=== PATIENT | female | born 1940 | race Caucasian/White ===

== ENCOUNTER 2018-06-14 08:26 | Inpatient (IN) | payer MEDICARE, BC ==
[~2018-06-14 08:26] MED LIST: EPHEDrine SULFATE 50 MG/5 ML SYG
[2018-06-14] MEDS: CEFAZOLIN 2 GM/50 ML (PMX) 50 ML IVPB (08:30)
[2018-06-14] MEDS: LACTATED RINGER'S 1,000 ML IV* (08:30)
[2018-06-14 09:33] LABS: ADD MAN DIFF? NO
[2018-06-14 09:36] LABS: BASOPHILS % 0.4 % (0.0-2.0); EOSINOPHILS # 0.1 10^3/ul (0.0-0.5); EOSINOPHILS % 1.6 % (0.0-7.0); HEMATOCRIT 40.3 % (37.0-47.0); LYMPHOCYTES # 1.5 10^3/ul (0.8-2.9); LYMPHOCYTES % 21.4 % (15.0-51.0); MEAN CORPUSCULAR HEMOGLOBIN 30.5 pg (29.0-33.0); MEAN CORPUSCULAR HGB CONC 32.3 g/dl (32.0-37.0); MEAN CORPUSCULAR VOLUME 94.6 fl (82.0-101.0); MEAN PLATELET VOLUME 10.9 fl (7.4-10.4); MONOCYTE # 0.5 10^3/ul (0.3-0.9); MONOCYTES % 6.4 % (0.0-11.0); NEUTROPHIL # 4.9 10^3/ul (1.6-7.5); NEUTROPHILS % 69.8 % (39.0-77.0); PLATELET COUNT 242 10^3/UL (140-415); RED BLOOD COUNT 4.26 10^6/ul (4.20-5.40); RED CELL DISTRIBUTION WIDTH 13.6 % (11.5-14.5)
[2018-06-14] MEDS ORDERED: BACITRACIN 50000 UNITS INJ (11:11)
[2018-06-14] MEDS ORDERED: CEFAZOLIN 1 GM INJ (11:14)
[2018-06-14] MEDS ORDERED: LIDOCAINE 2% (SDV) 5 ML INJ (11:48)
[2018-06-14] MEDS ORDERED: PROPOFOL 20 ML (11:48)
[2018-06-14] MEDS ORDERED: ROCURONIUM 50 MG INJ ×2 (11:48→12:36)
[2018-06-14] MEDS ORDERED: SUCCINYLCHOLINE CHLORIDE 100 MG/5 ML SYG IV (11:48)
[2018-06-14] MEDS ORDERED: HEPARIN 1000 UNITS/ML 10 ML INJ (12:03)
[2018-06-14] MEDS ORDERED: hydrALAzine 20 MG INJ (12:36)
[2018-06-14] MEDS: CEFAZOLIN 1 GM INJ (13:07)
[2018-06-14] MEDS: THROMBIN 5000 UNIT VIAL (13:11)
[2018-06-14] MEDS: GELATIN SIZE 100 SPONGE (13:12)
[2018-06-14] MEDS ORDERED: ONDANSETRON 4 MG INJ (13:17)
[2018-06-14] MEDS ORDERED: DEXAMETHASONE 4 MG/ML 1 ML INJ (13:17)
[2018-06-14] MEDS ORDERED: FAMOTIDINE 20 MG INJ (13:17)
[2018-06-14] MEDS: BUPIVACAINE 0.25%/EPI (SDV) 10 ML INJ (14:43)
[2018-06-14] MEDS: DEXTROSE 5%-0.45% NACL 1,000 ML IV ×2 (16:37→20:04)
[2018-06-14] MEDS ORDERED: GLYCOPYRROLATE 0.4 MG INJ (16:41)
[2018-06-14] MEDS ORDERED: PHENYLephrine (100 MCG/ML) 5ML SYG ×2 (16:41)
[2018-06-14] MEDS ORDERED: NEOSTIGMINE 3 MG/3 ML SYRINGE (16:41)
[2018-06-14] MEDS ORDERED: MEPERIDINE 25 MG INJ (16:55)
[2018-06-14] MEDS ORDERED: HYDROCODONE/APAP (5/325) TAB PO (17:00)
[2018-06-14] MEDS ORDERED: NALOXONE (0.4 MG/ML) INJ IV (17:00)
[2018-06-14] MEDS ORDERED: AL HYDROX/MG HYDROX/SIMETH 30 ML CUP PO (17:00)
[2018-06-14] MEDS ORDERED: ACETAMINOPHEN 325 MG TAB PO (17:00)
[2018-06-14] MEDS ORDERED: PROCHLORPERAZINE 10 MG TAB PO (17:00)
[2018-06-14] MEDS ORDERED: ONDANSETRON 4 MG INJ IV (17:00)
[2018-06-14] MEDS ORDERED: NACL 0.9% 3 ML SYG IV (17:00)
[2018-06-14] MEDS: MEPERIDINE 25 MG INJ IV (17:10)
[2018-06-14] MEDS: HYDROmorphONE 0.2 MG/ML PCA IV (17:17)
[2018-06-14] MEDS: CEFAZOLIN 1 GM/50 ML (PMX) 50 ML IVPB (18:00)
[2018-06-14] MEDS: BENAZEPRIL 20 MG TAB PO (18:30)
[2018-06-14] MEDS ORDERED: VITAMIN A & D 5 GM OINT PACKET TOP (18:40)
[2018-06-14] MEDS: SOD CHLORIDE 0.9% 250 ML IV (20:01)
[2018-06-14] MEDS: traZODone 50 MG TAB PO (20:51)
[2018-06-14] MEDS: BUPROPION 75 MG TAB PO (20:51)
[2018-06-15] MEDS: CEFAZOLIN 1 GM/50 ML (PMX) 50 ML IVPB ×3 (00:10→12:43)
[2018-06-15 05:09] LABS: HEMATOCRIT 31.4 % (37.0-47.0)
[2018-06-15 05:37] LABS: ANION GAP 11 (5-13); BLOOD UREA NITROGEN 22 mg/dl (7-20); CARBON DIOXIDE 21 mmol/L (21-31); CHLORIDE 107 mmol/L (97-110); CREATININE 1.38 mg/dl (0.44-1.00); GLUCOSE 147 mg/dl (70-220); POTASSIUM 4.2 mmol/L (3.5-5.1); SODIUM 139 mmol/L (135-144)
[2018-06-15] MEDS: PANTOPRAZOLE (EC) 40 MG TAB PO (05:59)
[2018-06-15] MEDS: LEVOTHYROXINE 88 MCG TAB PO (06:02)
[2018-06-15 08:40] LABS: PHOSPHORUS 4.5 mg/dl (2.5-4.9)
[2018-06-15 08:40] LABS: MAGNESIUM 1.6 mg/dl (1.7-2.5)
[2018-06-15] MEDS: ALLOPURINOL 100 MG TAB PO (09:57)
[2018-06-15] MEDS: ESTRADIOL 1 MG TAB PO (09:57)
[2018-06-15] MEDS: BUPROPION 75 MG TAB PO ×2 (09:57→20:28)
[2018-06-15] MEDS: DOCUSATE SODIUM 100 MG CAP PO ×2 (09:57→20:28)
[2018-06-15] MEDS: PAROXETINE 10 MG TAB PO (09:59)
[2018-06-15] MEDS: DEXTROSE 5%-0.45% NACL 1,000 ML IV ×3 (10:00→20:02)
[2018-06-15] MEDS: HYDROmorphONE 0.2 MG/ML PCA IV (11:20)
[2018-06-15] MEDS: HYDROCODONE/APAP (5/325) TAB PO ×3 (13:33→23:23)
[2018-06-15 18:51] LABS: THYROID STIMULATING HORMONE 0.404 MIU/L (0.465-4.680)
[2018-06-15] MEDS: traZODone 50 MG TAB PO (20:28)
[2018-06-16] MEDS: DEXTROSE 5%-0.45% NACL 1,000 ML IV ×2 (01:17→05:53)
[2018-06-16 05:35] LABS: ADD MAN DIFF? NO
[2018-06-16] MEDS: PANTOPRAZOLE (EC) 40 MG TAB PO (05:52)
[2018-06-16] MEDS: LEVOTHYROXINE 88 MCG TAB PO (06:00)
[2018-06-16 06:02] LABS: ANION GAP 6 (5-13); BLOOD UREA NITROGEN 19 mg/dl (7-20); CALCIUM 8.2 mg/dl (8.4-10.2); CARBON DIOXIDE 23 mmol/L (21-31); CHLORIDE 107 mmol/L (97-110); GLUCOSE 109 mg/dl (70-220); MAGNESIUM 1.8 mg/dl (1.7-2.5); PHOSPHORUS 3.4 mg/dl (2.5-4.9); POTASSIUM 3.9 mmol/L (3.5-5.1); SODIUM 136 mmol/L (135-144)
[2018-06-16] MEDS: HYDROCODONE/APAP (5/325) TAB PO ×3 (06:33→16:16)
[2018-06-16 06:39] LABS: BASOPHILS % 0.2 % (0.0-2.0); EOSINOPHILS # 0.3 10^3/ul (0.0-0.5); EOSINOPHILS % 3.1 % (0.0-7.0); LYMPHOCYTES # 1.1 10^3/ul (0.8-2.9); LYMPHOCYTES % 11.1 % (15.0-51.0); MEAN CORPUSCULAR HEMOGLOBIN 31.4 pg (29.0-33.0); MEAN CORPUSCULAR HGB CONC 32.3 g/dl (32.0-37.0); MEAN CORPUSCULAR VOLUME 97.5 fl (82.0-101.0); MEAN PLATELET VOLUME 11.1 fl (7.4-10.4); MONOCYTES % 9.4 % (0.0-11.0); NEUTROPHIL # 7.7 10^3/ul (1.6-7.5); NEUTROPHILS % 75.7 % (39.0-77.0); RED BLOOD COUNT 3.18 10^6/ul (4.20-5.40); RED CELL DISTRIBUTION WIDTH 13.6 % (11.5-14.5)
[2018-06-16 06:39] LABS: WHITE BLOOD COUNT 10.2 10^3/ul (4.8-10.8)
[2018-06-16 06:42] LABS: PLATELET COUNT 172 10^3/UL (140-415); POSITIVE DIFF @See below
[2018-06-16] MEDS: ALLOPURINOL 100 MG TAB PO (09:40)
[2018-06-16] MEDS: DOCUSATE SODIUM 100 MG CAP PO (09:40)
[2018-06-16] MEDS: BUPROPION 75 MG TAB PO (09:40)
[2018-06-16] MEDS: PAROXETINE 10 MG TAB PO (09:40)
[2018-06-16] MEDS: ESTRADIOL 1 MG TAB PO (09:40)
[2018-06-16] MEDS ORDERED: VITAMIN A & D 5 GM OINT PACKET TOP (12:13)
[2018-06-21] MEDS ORDERED: MIDAZOLAM 1 MG/ML 2 ML INJ (20:48)
[2018-06-21] MEDS ORDERED: METOCLOPRAMIDE 10 MG INJ (20:48)
== END 2018-06-16 17:13 | DRG 455 ==
LOC: REC 08:26 → MS1 18:26
PROVIDERS: Orthopaedic Surgery
PROC: 0SG00A0 Fusion of Lumbar Vertebral Joint with Interbody Fusion Device, Anterior Approach, Anterior Column, Open Approach (ICD-10-PCS; principal; 2018-06-14 10:30)
PROC: 0SG00K1 Fusion of Lumbar Vertebral Joint with Nonautologous Tissue Substitute, Posterior Approach, Posterior Column, Open Approach (ICD-10-PCS; 2018-06-14 10:30)
PROC: 0SB20ZZ Excision of Lumbar Vertebral Disc, Open Approach (ICD-10-PCS; 2018-06-14 10:30)
PROC: 4A11X4G Monitoring of Peripheral Nervous Electrical Activity, Intraoperative, External Approach (ICD-10-PCS; 2018-06-14 10:30)
DX: M43.16 Spondylolisthesis, lumbar region (principal); M48.061 Spinal stenosis, lumbar region without neurogenic claudication; M53.2X6 Spinal instabilities, lumbar region; M54.16 Radiculopathy, lumbar region; M85.80 Other specified disorders of bone density and structure, unspecified site; M10.9 Gout, unspecified; E03.9 Hypothyroidism, unspecified; E66.9 Obesity, unspecified; F32.9 Major depressive disorder, single episode, unspecified; I12.9 Hypertensive chronic kidney disease with stage 1 through stage 4 chronic kidney disease, or unspecified chronic kidney disease; K21.9 Gastro-esophageal reflux disease without esophagitis; N18.9 Chronic kidney disease, unspecified; Z68.33 Body mass index [BMI] 33.0-33.9, adult
CPT/HCPCS: 72114; 80048; 83735; 84100; 84443; 85014; 85018; 85025; 86850; 86900; 86901; 86920; 87086; 97110; 97116; 97162; 97530

== ENCOUNTER 2018-06-16 17:46 | Inpatient (IN) | payer MEDICARE, BC ==
[2018-06-16] MEDS ORDERED: BISACODYL 10 MG SUPP PR (18:30)
[2018-06-16] MEDS ORDERED: PENDING SANTYL ORDER FOR WOUND CARE XX (18:30)
[2018-06-16] MEDS ORDERED: ACETAMINOPHEN 325 MG TAB PO ×2 (18:30→21:30)
[2018-06-16] MEDS ORDERED: MAGNESIUM HYDROXIDE 30ML CUP PO (18:30)
[2018-06-16] MEDS ORDERED: AL HYDROX/MG HYDROX/SIMETH 30 ML CUP PO (21:30)
[2018-06-16] MEDS ORDERED: ONDANSETRON 4 MG INJ IV (21:30)
[2018-06-16] MEDS ORDERED: ACETAMINOPHEN/CODEINE #3 TAB PO (21:30)
[2018-06-16] MEDS ORDERED: DOCUSATE SODIUM 100 MG CAP PO (21:30)
[2018-06-16] MEDS ORDERED: NALOXONE (0.4 MG/ML) INJ IV (21:30)
[2018-06-16] MEDS: DEXTROSE 5%-0.45% NACL 1,000 ML IV (22:00)
[2018-06-16] MEDS ORDERED: NACL 0.9% 3 ML SYG IV (22:00)
[2018-06-16] MEDS: DOCUSATE SODIUM 100 MG CAP PO (23:04)
[2018-06-16] MEDS: HYDROCODONE/APAP (5/325) TAB PO (23:04)
[2018-06-16] MEDS: traZODone 50 MG TAB PO (23:04)
[2018-06-16] MEDS: SENNA TAB PO (23:04)
[2018-06-16] MEDS: BUPROPION 75 MG TAB PO (23:25)
[2018-06-17 00:01] LABS: ADD UMIC YES; UR ASCORBIC ACID NEGATIVE (NEGATIVE); UR BACTERIA FEW /HPF (NONE SEEN); UR BILIRUBIN (Dip) NEGATIVE (NEGATIVE); UR BLOOD (Dip) 2+ mg/dL (NEGATIVE); UR CLARITY SLIGHTLY CLOUDY (CLEAR); UR COLOR YELLOW (YELLOW); UR GLUCOSE (Dip) NEGATIVE (NEGATIVE); UR KETONES (Dip) NEGATIVE (NEGATIVE); UR LEUKOCYTE ESTERASE (Dip) NEGATIVE Leu/ul (NEGATIVE); UR NITRITE (Dip) NEGATIVE (NEGATIVE); UR RBC 4 /HPF (0-5); UR SPECIFIC GRAVITY (Dip) 1.012 (1.003-1.030); UR SQUAMOUS EPITHELIAL CELL FEW /HPF (FEW); UR TOTAL PROTEIN (Dip) NEGATIVE (NEGATIVE); UR UROBILINOGEN (Dip) NEGATIVE (NEGATIVE); UR WBC 3 /HPF (0-5)
[2018-06-17] MEDS: DEXTROSE 5%-0.45% NACL 1,000 ML IV (05:30)
[2018-06-17] MEDS: PANTOPRAZOLE (EC) 40 MG TAB PO (06:49)
[2018-06-17] MEDS: LEVOTHYROXINE 88 MCG TAB PO (06:49)
[2018-06-17 07:04] LABS: HEMATOCRIT 31.2 % (37.0-47.0); HEMOGLOBIN 9.7 g/dl (12.0-16.0); MEAN CORPUSCULAR HEMOGLOBIN 30.6 pg (29.0-33.0); MEAN CORPUSCULAR HGB CONC 31.1 g/dl (32.0-37.0); MEAN CORPUSCULAR VOLUME 98.4 fl (82.0-101.0); MEAN PLATELET VOLUME 10.9 fl (7.4-10.4); PLATELET COUNT 186 10^3/UL (140-415); RED BLOOD COUNT 3.17 10^6/ul (4.20-5.40); RED CELL DISTRIBUTION WIDTH 13.6 % (11.5-14.5)
[2018-06-17 07:04] LABS: WHITE BLOOD COUNT 10.6 10^3/ul (4.8-10.8)
[2018-06-17 07:13] LABS: POSITIVE DIFF @See below
[2018-06-17 07:14] LABS: ADD MAN DIFF? YES
[2018-06-17 07:26] LABS: ALANINE AMINOTRANSFERASE 19 IU/L (13-69); ALBUMIN 2.9 g/dl (3.3-4.9); ALBUMIN/GLOBULIN RATIO 1.07; ALKALINE PHOSPHATASE 98 IU/L (42-121); ANION GAP 7 (5-13); ASPARTATE AMINO TRANSFERASE 34 IU/L (15-46); BILIRUBIN,INDIRECT 0.6 mg/dl (0-1.1); BILIRUBIN,TOTAL 0.6 mg/dl (0.2-1.3); BLOOD UREA NITROGEN 16 mg/dl (7-20); CALCIUM 8.5 mg/dl (8.4-10.2); CARBON DIOXIDE 25 mmol/L (21-31); CHLORIDE 107 mmol/L (97-110); CREATININE 1.09 mg/dl (0.44-1.00); GLUCOSE 109 mg/dl (70-220); POTASSIUM 3.8 mmol/L (3.5-5.1); SODIUM 139 mmol/L (135-144); TOTAL PROTEIN 5.6 g/dl (6.1-8.1)
[2018-06-17 07:59] LABS: ANISOCYTOSIS 1+ (0-0); BAND NEUTROPHILS #M 0.1 10^3/ul (0.0-0.6); BAND NEUTROPHILS % (M) 1 % (0-4); EOSINOPHILS % (M) 4 % (0-7); LYMPHOCYTES #M 0.8 10^3/ul (0.8-2.9); LYMPHOCYTES % (M) 8 % (15-51); MONOCYTE #M 0.8 10^3/ul (0.3-0.9); MONOCYTES % (M) 8 % (0-11); PLATELET ESTIMATE NORMAL; POLYCHROMASIA 3+ (0-0); SEG NEUT #M 8.4 10^3/ul (1.6-7.5); SEGMENTED NEUTROPHILS (M) % 79 % (39-77); SMUDGE%M 4 % (0-0)
[2018-06-17] MEDS: HYDROCODONE/APAP (5/325) TAB PO ×4 (08:04→21:09)
[2018-06-17 08:29] LABS: IRON 18 ug/dl (35-150)
[2018-06-17 08:38] LABS: % IRON SATURATION 6 % SAT (22-52); TOTAL IRON BINDING CAPACITY 288 ug/dl (241-421)
[2018-06-17] MEDS: BENAZEPRIL 20 MG TAB PO (09:00)
[2018-06-17] MEDS: PAROXETINE 10 MG TAB PO (09:28)
[2018-06-17] MEDS: DOCUSATE SODIUM 100 MG CAP PO ×2 (09:28→21:00)
[2018-06-17] MEDS: ESTRADIOL 1 MG TAB PO (09:29)
[2018-06-17] MEDS: LACTULOSE 30ML CUP PO (09:29)
[2018-06-17] MEDS: BUPROPION 75 MG TAB PO ×2 (09:30→21:08)
[2018-06-17] MEDS: ALLOPURINOL 100 MG TAB PO (09:30)
[2018-06-17] MEDS: INFLUENZA VIRUS VACCINE 0.5 ML (DISPENSING) IM* (09:31)
[2018-06-17] MEDS: METHOCARBAMOL 500 MG TAB PO ×2 (12:05→17:40)
[2018-06-17] MEDS: SENNA TAB PO (21:00)
[2018-06-17] MEDS: traZODone 50 MG TAB PO (21:09)
[2018-06-18] MEDS: HYDROCODONE/APAP (5/325) TAB PO ×6 (01:32→23:15)
[2018-06-18] MEDS: PANTOPRAZOLE (EC) 40 MG TAB PO (06:36)
[2018-06-18] MEDS: LEVOTHYROXINE 88 MCG TAB PO (06:36)
[2018-06-18] MEDS ORDERED: DEXAMETHASONE 10 MG/ML 1 ML INJ IV (09:30)
[2018-06-18] MEDS: DOCUSATE SODIUM 100 MG CAP PO ×2 (11:00→20:54)
[2018-06-18] MEDS: BUPROPION 75 MG TAB PO ×2 (11:01→20:46)
[2018-06-18] MEDS: ALLOPURINOL 100 MG TAB PO (11:01)
[2018-06-18] MEDS: PAROXETINE 10 MG TAB PO (11:03)
[2018-06-18] MEDS: ESTRADIOL 1 MG TAB PO (11:03)
[2018-06-18] MEDS: PROCHLORPERAZINE 10 MG TAB PO (11:04)
[2018-06-18] MEDS: FERROUS FUMARATE (SR) TAB PO ×2 (11:04→20:46)
[2018-06-18] MEDS: BENAZEPRIL 20 MG TAB PO (11:05)
[2018-06-18] MEDS: DEXAMETHASONE 10 MG/ML 1 ML INJ IM (14:33)
[2018-06-18] MEDS: traZODone 50 MG TAB PO (20:46)
[2018-06-18] MEDS: SENNA TAB PO (20:54)
[2018-06-18] MEDS: METHOCARBAMOL 500 MG TAB PO (23:15)
[2018-06-19] MEDS: HYDROCODONE/APAP (5/325) TAB PO ×6 (00:41→22:15)
[2018-06-19] MEDS: PANTOPRAZOLE (EC) 40 MG TAB PO (06:39)
[2018-06-19] MEDS: LEVOTHYROXINE 88 MCG TAB PO (06:39)
[2018-06-19 07:17] LABS: ADD MAN DIFF? NO
[2018-06-19 07:22] LABS: BASOPHILS % 0.1 % (0.0-2.0); HEMATOCRIT 31.6 % (37.0-47.0); HEMOGLOBIN 10.2 g/dl (12.0-16.0); LYMPHOCYTES # 0.8 10^3/ul (0.8-2.9); LYMPHOCYTES % 10.6 % (15.0-51.0); MEAN CORPUSCULAR HGB CONC 32.3 g/dl (32.0-37.0); MEAN PLATELET VOLUME 10.9 fl (7.4-10.4); MONOCYTE # 0.4 10^3/ul (0.3-0.9); MONOCYTES % 5.5 % (0.0-11.0); NEUTROPHIL # 6.2 10^3/ul (1.6-7.5); NEUTROPHILS % 83.1 % (39.0-77.0); PLATELET COUNT 258 10^3/UL (140-415); RED BLOOD COUNT 3.29 10^6/ul (4.20-5.40); RED CELL DISTRIBUTION WIDTH 13.3 % (11.5-14.5)
[2018-06-19 07:22] LABS: WHITE BLOOD COUNT 7.4 10^3/ul (4.8-10.8)
[2018-06-19 07:59] LABS: ALANINE AMINOTRANSFERASE 23 IU/L (13-69); ALBUMIN 3.1 g/dl (3.3-4.9); ALKALINE PHOSPHATASE 142 IU/L (42-121); ANION GAP 10 (5-13); ASPARTATE AMINO TRANSFERASE 30 IU/L (15-46); BILIRUBIN,INDIRECT 0.5 mg/dl (0-1.1); BILIRUBIN,TOTAL 0.5 mg/dl (0.2-1.3); BLOOD UREA NITROGEN 16 mg/dl (7-20); CALCIUM 8.6 mg/dl (8.4-10.2); CARBON DIOXIDE 26 mmol/L (21-31); CHLORIDE 107 mmol/L (97-110); GLUCOSE 135 mg/dl (70-220); POTASSIUM 3.9 mmol/L (3.5-5.1); SODIUM 143 mmol/L (135-144); TOTAL PROTEIN 6.2 g/dl (6.1-8.1)
[2018-06-19] MEDS: DOCUSATE SODIUM 100 MG CAP PO ×2 (08:39→22:02)
[2018-06-19] MEDS: PAROXETINE 10 MG TAB PO (08:39)
[2018-06-19] MEDS: ESTRADIOL 1 MG TAB PO (08:39)
[2018-06-19] MEDS: FERROUS FUMARATE (SR) TAB PO ×2 (08:40→22:01)
[2018-06-19] MEDS: BENAZEPRIL 20 MG TAB PO (08:40)
[2018-06-19] MEDS: BUPROPION 75 MG TAB PO ×2 (08:40→22:01)
[2018-06-19] MEDS: ALLOPURINOL 100 MG TAB PO (08:40)
[2018-06-19] MEDS: METHOCARBAMOL 500 MG TAB PO (16:05)
[2018-06-19] MEDS ORDERED: HYDROmorphONE 0.5 MG/0.5 ML SYG IV (17:30)
[2018-06-19] MEDS: DEXAMETHASONE 10 MG/ML 1 ML INJ IM (17:46)
[2018-06-19] MEDS ORDERED: HYDROmorphONE 0.5 MG/0.5 ML SYG IM (21:30)
[2018-06-19] MEDS: SENNA TAB PO (22:01)
[2018-06-19] MEDS: traZODone 50 MG TAB PO (22:01)
[2018-06-20] MEDS: HYDROCODONE/APAP (5/325) TAB PO ×5 (02:17→17:39)
[2018-06-20] MEDS: LEVOTHYROXINE 88 MCG TAB PO (06:23)
[2018-06-20] MEDS: PANTOPRAZOLE (EC) 40 MG TAB PO (06:23)
[2018-06-20] MEDS: GABAPENTIN 300 MG CAP PO ×2 (09:14→20:13)
[2018-06-20] MEDS: METHOCARBAMOL 500 MG TAB PO (09:14)
[2018-06-20] MEDS: ESTRADIOL 1 MG TAB PO (09:14)
[2018-06-20] MEDS: ALLOPURINOL 100 MG TAB PO (09:14)
[2018-06-20] MEDS: BENAZEPRIL 20 MG TAB PO (09:15)
[2018-06-20] MEDS: FERROUS FUMARATE (SR) TAB PO ×2 (09:15→20:12)
[2018-06-20] MEDS: DOCUSATE SODIUM 100 MG CAP PO ×2 (09:15→20:13)
[2018-06-20] MEDS: PAROXETINE 10 MG TAB PO (09:15)
[2018-06-20] MEDS: BUPROPION 75 MG TAB PO ×2 (09:16→20:13)
[2018-06-20] MEDS: DEXAMETHASONE 10 MG/ML 1 ML INJ IM (09:36)
[2018-06-20] MEDS: GABAPENTIN 100 MG CAP PO (12:30)
[2018-06-20] MEDS: HYDROmorphONE 0.5 MG/0.5 ML SYG IM (15:48)
[2018-06-20] MEDS: SENNA TAB PO (20:13)
[2018-06-20] MEDS: traZODone 50 MG TAB PO (20:13)
[2018-06-21] MEDS: HYDROmorphONE 0.5 MG/0.5 ML SYG IM (00:32)
[2018-06-21] MEDS: HYDROCODONE/APAP (5/325) TAB PO ×3 (02:47→10:43)
[2018-06-21] MEDS: PANTOPRAZOLE (EC) 40 MG TAB PO (06:39)
[2018-06-21] MEDS: LEVOTHYROXINE 88 MCG TAB PO (06:39)
[2018-06-21] MEDS ORDERED: DESFLURANE 15 MIN (07:00)
[2018-06-21] MEDS ORDERED: METOCLOPRAMIDE 10 MG INJ (07:00)
[2018-06-21] MEDS: HYDROmorphONE 0.5 MG/0.5 ML SYG IV (08:06)
[2018-06-21] MEDS: DOCUSATE SODIUM 100 MG CAP PO (09:05)
[2018-06-21] MEDS: BENAZEPRIL 20 MG TAB PO (09:05)
[2018-06-21] MEDS: FERROUS FUMARATE (SR) TAB PO (09:05)
[2018-06-21] MEDS: ESTRADIOL 1 MG TAB PO (09:05)
[2018-06-21] MEDS: GABAPENTIN 300 MG CAP PO (09:06)
[2018-06-21] MEDS: BUPROPION 75 MG TAB PO (09:06)
[2018-06-21] MEDS: ALLOPURINOL 100 MG TAB PO (09:06)
[2018-06-21] MEDS: PAROXETINE 10 MG TAB PO (09:06)
[2018-06-21 10:54] LABS: ADD MAN DIFF? NO
[2018-06-21 10:56] LABS: WHITE BLOOD COUNT 9.8 10^3/ul (4.8-10.8)
[2018-06-21 10:56] LABS: BASOPHILS % 0.1 % (0.0-2.0); EOSINOPHILS # 0.1 10^3/ul (0.0-0.5); EOSINOPHILS % 1.1 % (0.0-7.0); HEMATOCRIT 31.3 % (37.0-47.0); HEMOGLOBIN 10.1 g/dl (12.0-16.0); LYMPHOCYTES # 2.8 10^3/ul (0.8-2.9); LYMPHOCYTES % 28.6 % (15.0-51.0); MEAN CORPUSCULAR HEMOGLOBIN 30.4 pg (29.0-33.0); MEAN CORPUSCULAR HGB CONC 32.3 g/dl (32.0-37.0); MEAN CORPUSCULAR VOLUME 94.3 fl (82.0-101.0); MEAN PLATELET VOLUME 10.1 fl (7.4-10.4); MONOCYTE # 1.1 10^3/ul (0.3-0.9); MONOCYTES % 10.7 % (0.0-11.0); NEUTROPHIL # 5.7 10^3/ul (1.6-7.5); NEUTROPHILS % 57.9 % (39.0-77.0); PLATELET COUNT 302 10^3/UL (140-415); RED BLOOD COUNT 3.32 10^6/ul (4.20-5.40); RED CELL DISTRIBUTION WIDTH 13.6 % (11.5-14.5)
[2018-06-21 11:14] LABS: ANION GAP 7 (5-13); BLOOD UREA NITROGEN 27 mg/dl (7-20); CALCIUM 8.4 mg/dl (8.4-10.2); CARBON DIOXIDE 27 mmol/L (21-31); CHLORIDE 104 mmol/L (97-110); GLUCOSE 87 mg/dl (70-220); POTASSIUM 4.3 mmol/L (3.5-5.1); SODIUM 138 mmol/L (135-144)
[2018-06-21] MEDS: GABAPENTIN 100 MG CAP PO (13:00)
[2018-06-21] MEDS: HYDROmorphONE 0.2 MG/ML PCA IV (15:56)
[2018-06-21] MEDS ORDERED: HYDROmorphONE 0.5 MG/0.5 ML SYG IV (16:00)
[2018-06-21] MEDS ORDERED: HYDROCODONE/APAP (5/325) TAB PO (16:00)
[2018-06-21] MEDS: 1/2 NS + KCL 20 MEQ 1,000 ML IV (17:21)
[2018-06-21] MEDS ORDERED: GELATIN SIZE 100 SPONGE (20:05)
[2018-06-21] MEDS ORDERED: POLYMYXIN/BACITRACIN 1L IRRIG (20:06)
[2018-06-21] MEDS ORDERED: THROMBIN 5000 UNIT VIAL (20:06)
[2018-06-21] MEDS ORDERED: ROCURONIUM 50 MG INJ (21:10)
[2018-06-21] MEDS ORDERED: ONDANSETRON 4 MG INJ (21:10)
[2018-06-21] MEDS ORDERED: SUCCINYLCHOLINE CHLORIDE 100 MG/5 ML SYG IV (21:10)
[2018-06-21] MEDS ORDERED: PROPOFOL 20 ML (21:10)
[2018-06-21] MEDS ORDERED: CEFAZOLIN 1 GM INJ (21:10)
[2018-06-21] MEDS ORDERED: MEPERIDINE 25 MG INJ IV (21:30)
[2018-06-21] MEDS ORDERED: ONDANSETRON 4 MG INJ IV (21:30)
[2018-06-21] MEDS ORDERED: DIPHENHYDRAMINE 50 MG INJ IV (21:30)
[2018-06-21] MEDS ORDERED: HYDROmorphONE 1 MG/5 ML IV SYRINGE IV ×3 (21:30)
[2018-06-21] MEDS: BUPIVACAINE 0.25%/EPI (SDV) 30 ML INJ INJ (22:08)
[2018-06-21] MEDS: POLYMYXIN/BACITRACIN 1L IRRIG (22:08)
[2018-06-21] MEDS: THROMBIN 5000 UNIT VIAL ×2 (22:09→23:29)
[2018-06-21] MEDS: GELATIN SIZE 100 SPONGE (23:29)
[2018-06-22] MEDS ORDERED: SOD CHLORIDE 0.45% 1,000 ML IV (01:28)
[2018-06-22] MEDS ORDERED: NACL 0.9% 3 ML SYG IV (01:30)
[2018-06-22] MEDS ORDERED: NALOXONE (0.4 MG/ML) INJ IV (01:30)
[2018-06-22] MEDS ORDERED: HYDROCODONE/APAP (5/325) TAB PO ×2 (01:30)
[2018-06-22] MEDS ORDERED: ONDANSETRON 4 MG INJ IV (01:30)
[2018-06-22] MEDS ORDERED: PROCHLORPERAZINE 10 MG TAB PO (01:30)
[2018-06-22] MEDS ORDERED: HYDROmorphONE 0.2 MG/ML PCA IV (01:30)
[2018-06-22] MEDS ORDERED: AL HYDROX/MG HYDROX/SIMETH 30 ML CUP PO (01:30)
[2018-06-22] MEDS ORDERED: ACETAMINOPHEN 325 MG TAB PO (01:30)
[2018-06-22] MEDS ORDERED: CEFAZOLIN 1 GM/50 ML (PMX) 50 ML IVPB (06:00)
== END 2018-06-21 19:45 | disposition home or self-care (01) | DRG 946 ==
LOC: VRC 17:46
PROC: F07Z5ZZ Bed Mobility Treatment (ICD-10-PCS; principal; 2018-06-21 20:47)
PROC: F08Z2ZZ Grooming/Personal Hygiene Treatment (ICD-10-PCS; 2018-06-21 20:47)
DX: G89.18 Other acute postprocedural pain (principal); M54.5 Low back pain; I10 Essential (primary) hypertension; M48.07 Spinal stenosis, lumbosacral region; M54.17 Radiculopathy, lumbosacral region; E03.9 Hypothyroidism, unspecified; K21.9 Gastro-esophageal reflux disease without esophagitis; Z74.09 Other reduced mobility; F39 Unspecified mood [affective] disorder; D50.9 Iron deficiency anemia, unspecified; M10.9 Gout, unspecified; D64.9 Anemia, unspecified
CPT/HCPCS: 72100; 72131; 72158; 80048; 80053; 81001; 82728; 83540; 85025; 86850; 86900; 86901; 87081; 87086; 90686; 97110; 97116; 97162; 97167; 97530; 97535

== ENCOUNTER 2018-06-22 03:25 | Inpatient (IN) | payer MEDICARE, BC ==
[2018-06-21] MEDS: CEFAZOLIN 1 GM/50 ML (PMX) 50 ML IVPB (21:12)
[2018-06-22] MEDS: HYDROmorphONE 0.2 MG/ML PCA IV (03:01)
[2018-06-22] MEDS: HYDROmorphONE 1 MG/5 ML IV SYRINGE IV (03:05)
[~2018-06-22 03:25] MED LIST changes: +ACETAMINOPHEN 325 MG TAB PO; +DIPHENHYDRAMINE 50 MG INJ IV; -EPHEDrine SULFATE 50 MG/5 ML SYG; +HYDROmorphONE 1 MG/5 ML IV SYRINGE IV; +MEPERIDINE 25 MG INJ IV; +NACL 0.9% 3 ML SYG IV; +NALOXONE (0.4 MG/ML) INJ IV; +ONDANSETRON 4 MG INJ IV; +PROCHLORPERAZINE 10 MG TAB PO
[2018-06-22] MEDS: CEFAZOLIN 1 GM/50 ML (PMX) 50 ML IVPB ×3 (05:38→17:38)
[2018-06-22] MEDS: PAROXETINE 10 MG TAB PO (09:00)
[2018-06-22] MEDS: BENAZEPRIL 20 MG TAB PO (09:00)
[2018-06-22 09:01] LABS: ADD MAN DIFF? NO
[2018-06-22 09:08] LABS: WHITE BLOOD COUNT 11.8 10^3/ul (4.8-10.8)
[2018-06-22 09:08] LABS: BASOPHILS % 0.3 % (0.0-2.0); EOSINOPHILS # 0.3 10^3/ul (0.0-0.5); EOSINOPHILS % 2.9 % (0.0-7.0); HEMATOCRIT 31.2 % (37.0-47.0); HEMOGLOBIN 9.9 g/dl (12.0-16.0); MEAN CORPUSCULAR HEMOGLOBIN 30.7 pg (29.0-33.0); MEAN CORPUSCULAR HGB CONC 31.7 g/dl (32.0-37.0); MEAN CORPUSCULAR VOLUME 96.6 fl (82.0-101.0); MEAN PLATELET VOLUME 9.8 fl (7.4-10.4); MONOCYTES % 8.8 % (0.0-11.0); NEUTROPHIL # 8.1 10^3/ul (1.6-7.5); NEUTROPHILS % 68.6 % (39.0-77.0); PLATELET COUNT 312 10^3/UL (140-415); RED BLOOD COUNT 3.23 10^6/ul (4.20-5.40); RED CELL DISTRIBUTION WIDTH 13.9 % (11.5-14.5)
[2018-06-22 09:24] LABS: ANION GAP 7 (5-13); BLOOD UREA NITROGEN 27 mg/dl (7-20); CALCIUM 7.8 mg/dl (8.4-10.2); CARBON DIOXIDE 25 mmol/L (21-31); CHLORIDE 103 mmol/L (97-110); CREATININE 1.12 mg/dl (0.44-1.00); GLUCOSE 101 mg/dl (70-220); MAGNESIUM 1.6 mg/dl (1.7-2.5); PHOSPHORUS 5.4 mg/dl (2.5-4.9); POTASSIUM 4.2 mmol/L (3.5-5.1); SODIUM 135 mmol/L (135-144)
[2018-06-22] MEDS: SOD CHLORIDE 0.9% 1,000 ML IV ×2 (09:30→15:22)
[2018-06-22] MEDS: BUPROPION 75 MG TAB PO (11:10)
[2018-06-22] MEDS: ESTRADIOL 1 MG TAB PO (11:10)
[2018-06-22] MEDS: ALLOPURINOL 100 MG TAB PO (11:10)
[2018-06-22] MEDS ORDERED: HYDROmorphONE 0.5 MG/0.5 ML SYG IV (13:00)
[2018-06-22] MEDS: HYDROCODONE/APAP (5/325) TAB PO ×2 (13:06→17:38)
[2018-06-23] MEDS: BUPROPION 75 MG TAB PO ×3 (00:29→22:16)
[2018-06-23] MEDS: CEFAZOLIN 1 GM/50 ML (PMX) 50 ML IVPB (00:29)
[2018-06-23] MEDS: traZODone 50 MG TAB PO ×2 (00:29→21:04)
[2018-06-23] MEDS: HYDROCODONE/APAP (5/325) TAB PO ×5 (00:29→18:59)
[2018-06-23] MEDS: SOD CHLORIDE 0.9% 1,000 ML IV ×2 (04:46→18:32)
[2018-06-23] MEDS: LEVOTHYROXINE 88 MCG TAB PO (07:15)
[2018-06-23] MEDS: DOCUSATE SODIUM 100 MG CAP PO ×2 (08:50→21:04)
[2018-06-23] MEDS: MAGNESIUM HYDROXIDE 30ML CUP PO ×2 (08:50→21:07)
[2018-06-23] MEDS: BENAZEPRIL 20 MG TAB PO (08:51)
[2018-06-23] MEDS: ESTRADIOL 1 MG TAB PO (08:51)
[2018-06-23] MEDS: ALLOPURINOL 100 MG TAB PO (08:51)
[2018-06-23] MEDS: PAROXETINE 10 MG TAB PO (08:57)
[2018-06-23 09:42] LABS: HEMATOCRIT 30.8 % (37.0-47.0); HEMOGLOBIN 10.1 g/dl (12.0-16.0)
[2018-06-23 09:57] LABS: ADD UMIC YES; UR ASCORBIC ACID NEGATIVE (NEGATIVE); UR BILIRUBIN (Dip) NEGATIVE (NEGATIVE); UR BLOOD (Dip) 1+ mg/dL (NEGATIVE); UR CLARITY CLEAR (CLEAR); UR COLOR YELLOW (YELLOW); UR GLUCOSE (Dip) NEGATIVE (NEGATIVE); UR KETONES (Dip) NEGATIVE (NEGATIVE); UR LEUKOCYTE ESTERASE (Dip) NEGATIVE Leu/ul (NEGATIVE); UR NITRITE (Dip) NEGATIVE (NEGATIVE); UR RBC 2 /HPF (0-5); UR SPECIFIC GRAVITY (Dip) 1.011 (1.003-1.030); UR TOTAL PROTEIN (Dip) NEGATIVE (NEGATIVE); UR UROBILINOGEN (Dip) 1+ mg/dL (NEGATIVE); UR WBC 1 /HPF (0-5)
[2018-06-23 10:18] LABS: BLOOD UREA NITROGEN 19 mg/dl (7-20); CALCIUM 7.8 mg/dl (8.4-10.2); CHLORIDE 108 mmol/L (97-110); GLUCOSE 92 mg/dl (70-220); POTASSIUM 3.9 mmol/L (3.5-5.1); SODIUM 139 mmol/L (135-144)
[2018-06-23 10:42] LABS: ANION GAP 8 (5-13); CARBON DIOXIDE 23 mmol/L (21-31)
[2018-06-23] MEDS: MAGNESIUM SULFATE 3 GM in DEXTROSE 5% 100 ML IVPB (11:10)
[2018-06-23] MEDS: GABAPENTIN 300 MG CAP PO (21:05)
[2018-06-23] MEDS: DEXAMETHASONE 10 MG/ML 1 ML INJ IV (22:45)
[2018-06-24] MEDS: HYDROCODONE/APAP (5/325) TAB PO ×5 (02:27→21:33)
[2018-06-24] MEDS: SOD CHLORIDE 0.9% 1,000 ML IV ×2 (04:26→17:42)
[2018-06-24 05:19] LABS: ADD MAN DIFF? NO
[2018-06-24 05:25] LABS: BASOPHILS % 0.2 % (0.0-2.0); EOSINOPHILS % 0.3 % (0.0-7.0); HEMOGLOBIN 10.3 g/dl (12.0-16.0); LYMPHOCYTES # 0.7 10^3/ul (0.8-2.9); LYMPHOCYTES % 6.2 % (15.0-51.0); MEAN CORPUSCULAR HEMOGLOBIN 30.4 pg (29.0-33.0); MEAN CORPUSCULAR HGB CONC 32.2 g/dl (32.0-37.0); MEAN CORPUSCULAR VOLUME 94.4 fl (82.0-101.0); MEAN PLATELET VOLUME 9.9 fl (7.4-10.4); MONOCYTE # 0.2 10^3/ul (0.3-0.9); MONOCYTES % 1.5 % (0.0-11.0); NEUTROPHIL # 10.4 10^3/ul (1.6-7.5); NEUTROPHILS % 89.7 % (39.0-77.0); PLATELET COUNT 329 10^3/UL (140-415); RED BLOOD COUNT 3.39 10^6/ul (4.20-5.40); RED CELL DISTRIBUTION WIDTH 13.6 % (11.5-14.5)
[2018-06-24 05:25] LABS: WHITE BLOOD COUNT 11.5 10^3/ul (4.8-10.8)
[2018-06-24 05:50] LABS: ANION GAP 9 (5-13); BLOOD UREA NITROGEN 11 mg/dl (7-20); CALCIUM 7.8 mg/dl (8.4-10.2); CARBON DIOXIDE 24 mmol/L (21-31); CHLORIDE 107 mmol/L (97-110); CREATININE 0.76 mg/dl (0.44-1.00); GLUCOSE 149 mg/dl (70-220); MAGNESIUM 2.4 mg/dl (1.7-2.5); PHOSPHORUS 3.3 mg/dl (2.5-4.9); POTASSIUM 4.4 mmol/L (3.5-5.1); SODIUM 140 mmol/L (135-144)
[2018-06-24] MEDS: LEVOTHYROXINE 88 MCG TAB PO (07:01)
[2018-06-24] MEDS: DOCUSATE SODIUM 100 MG CAP PO ×2 (08:58→21:32)
[2018-06-24] MEDS: BUPROPION 75 MG TAB PO ×2 (08:58→21:31)
[2018-06-24] MEDS: PAROXETINE 10 MG TAB PO (08:58)
[2018-06-24] MEDS: ALLOPURINOL 100 MG TAB PO (08:58)
[2018-06-24] MEDS: GABAPENTIN 300 MG CAP PO ×3 (08:58→21:32)
[2018-06-24] MEDS: BENAZEPRIL 20 MG TAB PO (08:59)
[2018-06-24] MEDS ORDERED: BENAZEPRIL 20 MG TAB PO (09:00)
[2018-06-24] MEDS: NA PHOSPHATE/BIPHOS 133 ML ENEMA PR (16:25)
[2018-06-24] MEDS: traZODone 50 MG TAB PO (21:32)
[2018-06-24] MEDS: GUAIFENESIN 20 MG/ML 5ML CUP PO (23:17)
[2018-06-25] MEDS: SOD CHLORIDE 0.9% 1,000 ML IV ×2 (04:57→10:00)
[2018-06-25] MEDS: LEVOTHYROXINE 88 MCG TAB PO (06:19)
[2018-06-25] MEDS: HYDROCODONE/APAP (5/325) TAB PO ×4 (06:47→18:55)
[2018-06-25] MEDS: GUAIFENESIN 20 MG/ML 5ML CUP PO (06:47)
[2018-06-25] MEDS: DOCUSATE SODIUM 100 MG CAP PO ×2 (08:21→20:17)
[2018-06-25] MEDS: ALLOPURINOL 100 MG TAB PO (08:22)
[2018-06-25] MEDS: BENAZEPRIL 20 MG TAB PO (08:22)
[2018-06-25] MEDS: GABAPENTIN 300 MG CAP PO ×3 (08:22→20:18)
[2018-06-25] MEDS: PAROXETINE 10 MG TAB PO (08:23)
[2018-06-25] MEDS: BUPROPION 75 MG TAB PO ×2 (08:23→20:17)
[2018-06-25] MEDS: GUAIFENESIN/DM 5ML CUP PO ×4 (09:44→20:18)
[2018-06-25] MEDS: CEPASTAT LOZENGE MT (15:05)
[2018-06-25] MEDS: traZODone 50 MG TAB PO (20:18)
[2018-06-26] MEDS: HYDROCODONE/APAP (5/325) TAB PO ×5 (01:04→19:32)
[2018-06-26] MEDS: GUAIFENESIN/DM 5ML CUP PO ×4 (05:15→20:25)
[2018-06-26] MEDS: LEVOTHYROXINE 88 MCG TAB PO (05:15)
[2018-06-26 05:21] LABS: ADD MAN DIFF? NO
[2018-06-26 05:27] LABS: WHITE BLOOD COUNT 10.6 10^3/ul (4.8-10.8)
[2018-06-26 05:27] LABS: BASOPHILS % 0.4 % (0.0-2.0); EOSINOPHILS # 0.7 10^3/ul (0.0-0.5); EOSINOPHILS % 6.9 % (0.0-7.0); HEMATOCRIT 28.4 % (37.0-47.0); LYMPHOCYTES # 2.5 10^3/ul (0.8-2.9); LYMPHOCYTES % 23.4 % (15.0-51.0); MEAN CORPUSCULAR HEMOGLOBIN 30.5 pg (29.0-33.0); MEAN CORPUSCULAR HGB CONC 31.7 g/dl (32.0-37.0); MEAN CORPUSCULAR VOLUME 96.3 fl (82.0-101.0); MEAN PLATELET VOLUME 9.6 fl (7.4-10.4); MONOCYTE # 0.9 10^3/ul (0.3-0.9); MONOCYTES % 8.6 % (0.0-11.0); NEUTROPHIL # 6.3 10^3/ul (1.6-7.5); NEUTROPHILS % 59.6 % (39.0-77.0); PLATELET COUNT 340 10^3/UL (140-415); RED BLOOD COUNT 2.95 10^6/ul (4.20-5.40); RED CELL DISTRIBUTION WIDTH 13.9 % (11.5-14.5)
[2018-06-26 05:44] LABS: ANION GAP 9 (5-13); BLOOD UREA NITROGEN 13 mg/dl (7-20); CALCIUM 7.9 mg/dl (8.4-10.2); CARBON DIOXIDE 25 mmol/L (21-31); CHLORIDE 108 mmol/L (97-110); CREATININE 0.83 mg/dl (0.44-1.00); GLUCOSE 92 mg/dl (70-220); PHOSPHORUS 3.5 mg/dl (2.5-4.9); POTASSIUM 3.7 mmol/L (3.5-5.1); SODIUM 142 mmol/L (135-144)
[2018-06-26] MEDS: DOCUSATE SODIUM 100 MG CAP PO ×2 (09:15→20:23)
[2018-06-26] MEDS: BENAZEPRIL 20 MG TAB PO (09:16)
[2018-06-26] MEDS: GABAPENTIN 300 MG CAP PO ×3 (09:16→20:22)
[2018-06-26] MEDS: PAROXETINE 10 MG TAB PO (09:17)
[2018-06-26] MEDS: ALLOPURINOL 100 MG TAB PO (09:18)
[2018-06-26] MEDS: BUPROPION 75 MG TAB PO ×2 (09:18→20:22)
[2018-06-26] MEDS: traZODone 50 MG TAB PO (20:22)
[2018-06-27] MEDS: HYDROCODONE/APAP (5/325) TAB PO ×6 (01:37→22:00)
[2018-06-27] MEDS: SOD CHLORIDE 0.9% 1,000 ML IV (04:57)
[2018-06-27 06:00] LABS: ADD MAN DIFF? NO
[2018-06-27 06:04] LABS: BASOPHILS % 0.4 % (0.0-2.0); EOSINOPHILS # 0.7 10^3/ul (0.0-0.5); EOSINOPHILS % 6.6 % (0.0-7.0); HEMATOCRIT 30.2 % (37.0-47.0); HEMOGLOBIN 9.6 g/dl (12.0-16.0); LYMPHOCYTES # 2.4 10^3/ul (0.8-2.9); LYMPHOCYTES % 21.3 % (15.0-51.0); MEAN CORPUSCULAR HEMOGLOBIN 30.5 pg (29.0-33.0); MEAN CORPUSCULAR HGB CONC 31.8 g/dl (32.0-37.0); MEAN CORPUSCULAR VOLUME 95.9 fl (82.0-101.0); MEAN PLATELET VOLUME 9.6 fl (7.4-10.4); MONOCYTE # 0.9 10^3/ul (0.3-0.9); MONOCYTES % 8.3 % (0.0-11.0); PLATELET COUNT 347 10^3/UL (140-415); RED BLOOD COUNT 3.15 10^6/ul (4.20-5.40); RED CELL DISTRIBUTION WIDTH 14.2 % (11.5-14.5)
[2018-06-27 06:04] LABS: WHITE BLOOD COUNT 11.2 10^3/ul (4.8-10.8)
[2018-06-27 06:31] LABS: IRON 43 ug/dl (35-150)
[2018-06-27 06:32] LABS: ANION GAP 6 (5-13); BLOOD UREA NITROGEN 13 mg/dl (7-20); CARBON DIOXIDE 26 mmol/L (21-31); CHLORIDE 108 mmol/L (97-110); CREATININE 0.86 mg/dl (0.44-1.00); GLUCOSE 93 mg/dl (70-220); POTASSIUM 3.8 mmol/L (3.5-5.1); SODIUM 140 mmol/L (135-144)
[2018-06-27 06:41] LABS: % IRON SATURATION 16 % SAT (22-52); TOTAL IRON BINDING CAPACITY 265 ug/dl (241-421)
[2018-06-27] MEDS: LEVOTHYROXINE 88 MCG TAB PO (07:36)
[2018-06-27] MEDS: DOCUSATE SODIUM 100 MG CAP PO ×2 (08:16→22:19)
[2018-06-27] MEDS: CEPASTAT LOZENGE MT (08:16)
[2018-06-27] MEDS: PAROXETINE 10 MG TAB PO (08:17)
[2018-06-27] MEDS: BUPROPION 75 MG TAB PO ×2 (08:17→22:19)
[2018-06-27] MEDS: GABAPENTIN 300 MG CAP PO ×3 (08:17→22:19)
[2018-06-27] MEDS: ALLOPURINOL 100 MG TAB PO (08:18)
[2018-06-27] MEDS: BENAZEPRIL 20 MG TAB PO (08:18)
[2018-06-27] MEDS: GUAIFENESIN/DM 5ML CUP PO ×4 (08:20→22:19)
[2018-06-27] MEDS: AMLODIPINE 2.5 MG TAB PO ×2 (13:55→22:20)
[2018-06-27] MEDS: FERROUS FUMARATE (SR) TAB PO ×2 (13:55→22:19)
[2018-06-27] MEDS ORDERED: SOD FERRIC GLUC COMPLX 125 MG in SOD CHLORIDE 0.9% 100 ML IVPB (15:00)
[2018-06-27] MEDS: HYDROmorphONE 2 MG TAB PO (15:08)
[2018-06-27] MEDS: traZODone 50 MG TAB PO (22:20)
[2018-06-28] MEDS: HYDROCODONE/APAP (5/325) TAB PO ×5 (01:53→23:14)
[2018-06-28] MEDS: LEVOTHYROXINE 88 MCG TAB PO (06:11)
[2018-06-28] MEDS: GUAIFENESIN/DM 5ML CUP PO ×4 (08:08→20:33)
[2018-06-28] MEDS: HYDROmorphONE 2 MG TAB PO (08:18)
[2018-06-28] MEDS: GABAPENTIN 300 MG CAP PO ×3 (08:19→20:34)
[2018-06-28] MEDS: FERROUS FUMARATE (SR) TAB PO ×2 (08:19→20:33)
[2018-06-28] MEDS: PAROXETINE 10 MG TAB PO (08:19)
[2018-06-28] MEDS: BUPROPION 75 MG TAB PO ×2 (08:19→20:34)
[2018-06-28] MEDS: ALLOPURINOL 100 MG TAB PO (08:19)
[2018-06-28] MEDS: DOCUSATE SODIUM 100 MG CAP PO ×2 (08:19→20:34)
[2018-06-28] MEDS: AMLODIPINE 2.5 MG TAB PO ×2 (08:20→20:34)
[2018-06-28] MEDS: BENAZEPRIL 40 MG TAB PO (08:20)
[2018-06-28] MEDS: DEXAMETHASONE 10 MG/ML 1 ML INJ IM (12:59)
[2018-06-28] MEDS: traZODone 50 MG TAB PO (20:34)
[2018-06-28] MEDS: CEPASTAT LOZENGE MT (23:36)
[2018-06-29 05:40] LABS: ADD MAN DIFF? NO
[2018-06-29 05:52] LABS: WHITE BLOOD COUNT 14.2 10^3/ul (4.8-10.8)
[2018-06-29 05:52] LABS: BASOPHILS % 0.1 % (0.0-2.0); EOSINOPHILS % 0.1 % (0.0-7.0); HEMATOCRIT 30.9 % (37.0-47.0); LYMPHOCYTES # 1.3 10^3/ul (0.8-2.9); LYMPHOCYTES % 9.1 % (15.0-51.0); MEAN CORPUSCULAR HEMOGLOBIN 30.8 pg (29.0-33.0); MEAN CORPUSCULAR HGB CONC 32.4 g/dl (32.0-37.0); MEAN CORPUSCULAR VOLUME 95.1 fl (82.0-101.0); MEAN PLATELET VOLUME 9.8 fl (7.4-10.4); MONOCYTE # 0.7 10^3/ul (0.3-0.9); MONOCYTES % 5.2 % (0.0-11.0); NEUTROPHILS % 84.4 % (39.0-77.0); PLATELET COUNT 414 10^3/UL (140-415); RED BLOOD COUNT 3.25 10^6/ul (4.20-5.40); RED CELL DISTRIBUTION WIDTH 13.8 % (11.5-14.5)
[2018-06-29] MEDS: LEVOTHYROXINE 88 MCG TAB PO (06:01)
[2018-06-29] MEDS: MAGNESIUM HYDROXIDE 30ML CUP PO (06:02)
[2018-06-29] MEDS: HYDROCODONE/APAP (5/325) TAB PO ×2 (06:02→09:56)
[2018-06-29 06:24] LABS: ANION GAP 7 (5-13); BLOOD UREA NITROGEN 17 mg/dl (7-20); CALCIUM 8.5 mg/dl (8.4-10.2); CARBON DIOXIDE 28 mmol/L (21-31); CHLORIDE 105 mmol/L (97-110); CREATININE 0.82 mg/dl (0.44-1.00); GLUCOSE 119 mg/dl (70-220); MAGNESIUM 2.2 mg/dl (1.7-2.5); PHOSPHORUS 3.2 mg/dl (2.5-4.9); POTASSIUM 4.2 mmol/L (3.5-5.1); SODIUM 140 mmol/L (135-144)
[2018-06-29] MEDS: FERROUS FUMARATE (SR) TAB PO ×2 (08:59→20:56)
[2018-06-29] MEDS: DOCUSATE SODIUM 100 MG CAP PO ×2 (08:59→20:57)
[2018-06-29] MEDS: GABAPENTIN 300 MG CAP PO ×3 (08:59→20:57)
[2018-06-29] MEDS: BUPROPION 75 MG TAB PO ×2 (08:59→20:57)
[2018-06-29] MEDS: GUAIFENESIN/DM 5ML CUP PO ×4 (08:59→20:56)
[2018-06-29] MEDS: ALLOPURINOL 100 MG TAB PO (09:00)
[2018-06-29] MEDS: AMLODIPINE 2.5 MG TAB PO (09:00)
[2018-06-29] MEDS: BENAZEPRIL 40 MG TAB PO (09:00)
[2018-06-29] MEDS: PAROXETINE 10 MG TAB PO (09:00)
[2018-06-29] MEDS: KETOROLAC 30 MG INJ IM ×2 (10:02→16:27)
[2018-06-29] MEDS: ENOXAPARIN 40 MG/0.4 ML SYG SC (12:55)
[2018-06-29] MEDS: traZODone 50 MG TAB PO (20:57)
[2018-06-29] MEDS: AMLODIPINE 5 MG TAB PO (20:59)
[2018-06-30] MEDS: KETOROLAC 30 MG INJ IM (00:15)
[2018-06-30] MEDS: HYDROCODONE/APAP (5/325) TAB PO ×2 (02:12→06:18)
[2018-06-30] MEDS: GABAPENTIN 300 MG CAP PO ×3 (05:29→21:12)
[2018-06-30] MEDS: LEVOTHYROXINE 88 MCG TAB PO (06:17)
[2018-06-30] MEDS ORDERED: DEXAMETHASONE 10 MG/ML 1 ML INJ IM (08:00)
[2018-06-30] MEDS: DOCUSATE SODIUM 100 MG CAP PO ×2 (08:15→21:12)
[2018-06-30] MEDS: OXYCODONE/ACETAMINOPHEN (10/325) TAB PO ×4 (08:15→21:11)
[2018-06-30] MEDS: FERROUS FUMARATE (SR) TAB PO ×2 (08:15→21:12)
[2018-06-30] MEDS: AMLODIPINE 5 MG TAB PO ×2 (08:16→21:14)
[2018-06-30] MEDS: BENAZEPRIL 40 MG TAB PO (08:16)
[2018-06-30] MEDS: ALLOPURINOL 100 MG TAB PO (08:16)
[2018-06-30] MEDS: BUPROPION 75 MG TAB PO ×3 (08:17→21:13)
[2018-06-30] MEDS: GUAIFENESIN/DM 5ML CUP PO ×4 (08:17→21:15)
[2018-06-30] MEDS: PAROXETINE 10 MG TAB PO (08:17)
[2018-06-30] MEDS: ENOXAPARIN 40 MG/0.4 ML SYG SC (08:21)
[2018-06-30] MEDS: LEVOFLOXACIN 500 MG TAB PO (12:28)
[2018-06-30] MEDS ORDERED: IPRATROPIUM (NEB) 0.5 MG/2.5 ML AMP HHN (13:00)
[2018-06-30] MEDS: ALBUTEROL/IPRATROPIUM (NEB) 3 ML AMP HHN ×3 (13:58→20:25)
[2018-06-30] MEDS: traZODone 50 MG TAB PO (21:13)
[2018-07-01] MEDS: ALBUTEROL/IPRATROPIUM (NEB) 3 ML AMP HHN ×5 (01:00→17:00)
[2018-07-01] MEDS: OXYCODONE/ACETAMINOPHEN (10/325) TAB PO ×4 (02:45→14:59)
[2018-07-01 05:21] LABS: ADD MAN DIFF? NO
[2018-07-01 05:30] LABS: BASOPHIL # 0.1 10^3/ul (0.0-0.1); BASOPHILS % 0.9 % (0.0-2.0); EOSINOPHILS # 0.7 10^3/ul (0.0-0.5); EOSINOPHILS % 6.2 % (0.0-7.0); HEMATOCRIT 28.7 % (37.0-47.0); HEMOGLOBIN 9.1 g/dl (12.0-16.0); LYMPHOCYTES # 2.3 10^3/ul (0.8-2.9); LYMPHOCYTES % 21.7 % (15.0-51.0); MEAN CORPUSCULAR HEMOGLOBIN 31.3 pg (29.0-33.0); MEAN CORPUSCULAR HGB CONC 31.7 g/dl (32.0-37.0); MEAN CORPUSCULAR VOLUME 98.6 fl (82.0-101.0); MEAN PLATELET VOLUME 9.6 fl (7.4-10.4); MONOCYTES % 9.5 % (0.0-11.0); NEUTROPHIL # 6.4 10^3/ul (1.6-7.5); NEUTROPHILS % 60.5 % (39.0-77.0); PLATELET COUNT 429 10^3/UL (140-415); RED BLOOD COUNT 2.91 10^6/ul (4.20-5.40); RED CELL DISTRIBUTION WIDTH 14.8 % (11.5-14.5)
[2018-07-01 05:30] LABS: WHITE BLOOD COUNT 10.5 10^3/ul (4.8-10.8)
[2018-07-01 06:31] LABS: ANION GAP 8 (5-13); BLOOD UREA NITROGEN 25 mg/dl (7-20); CARBON DIOXIDE 26 mmol/L (21-31); CHLORIDE 104 mmol/L (97-110); CREATININE 1.17 mg/dl (0.44-1.00); GLUCOSE 99 mg/dl (70-220); PHOSPHORUS 5.7 mg/dl (2.5-4.9); SODIUM 138 mmol/L (135-144)
[2018-07-01] MEDS: LEVOFLOXACIN 500 MG TAB PO (06:37)
[2018-07-01] MEDS: LEVOTHYROXINE 88 MCG TAB PO (06:37)
[2018-07-01] MEDS: ALLOPURINOL 100 MG TAB PO (09:00)
[2018-07-01] MEDS: GUAIFENESIN/DM 5ML CUP PO ×3 (09:21→17:02)
[2018-07-01] MEDS: BENAZEPRIL 40 MG TAB PO (09:22)
[2018-07-01] MEDS: PAROXETINE 10 MG TAB PO (09:23)
[2018-07-01] MEDS: DOCUSATE SODIUM 100 MG CAP PO (09:23)
[2018-07-01] MEDS: GABAPENTIN 300 MG CAP PO ×2 (09:24→12:14)
[2018-07-01] MEDS: AMLODIPINE 5 MG TAB PO (09:24)
[2018-07-01] MEDS: BUPROPION 75 MG TAB PO (09:25)
[2018-07-01] MEDS: FERROUS FUMARATE (SR) TAB PO (09:25)
[2018-07-01] MEDS: ENOXAPARIN 40 MG/0.4 ML SYG SC (09:29)
== END 2018-07-01 17:22 | DRG 497 ==
LOC: MS1 03:25
PROC: 0QW004Z Revision of Internal Fixation Device in Lumbar Vertebra, Open Approach (ICD-10-PCS; principal; 2018-06-23)
DX: T84.296A Other mechanical complication of internal fixation device of vertebrae, initial encounter (principal); M43.16 Spondylolisthesis, lumbar region; M54.16 Radiculopathy, lumbar region; M48.061 Spinal stenosis, lumbar region without neurogenic claudication; M10.9 Gout, unspecified; I10 Essential (primary) hypertension; E03.9 Hypothyroidism, unspecified; Z96.611 Presence of right artificial shoulder joint; K21.9 Gastro-esophageal reflux disease without esophagitis; E83.42 Hypomagnesemia; F39 Unspecified mood [affective] disorder; D64.9 Anemia, unspecified; Y83.8 Other surgical procedures as the cause of abnormal reaction of the patient, or of later complication, without mention of misadventure at the time of the procedure
CPT/HCPCS: 71045; 72110; 72131; 73700; 80048; 81001; 82728; 83540; 83735; 84100; 85014; 85018; 85025; 87086; 88300; 94640; 94664; 97110; 97116; 97163; 97166; 97530; 97535